=== PATIENT | male | born 1985 | race Caucasian/White ===

== ENCOUNTER 2018-04-19 11:30 | Day surgery (SDC) | payer OTHER ==
[~2018-04-19] VITALS: Ht 177.8 cm; Wt 93.4 kg
[2018-04-19] VITALS (7 sets, daily range): BP systolic 122–138; BP diastolic 62–72
[~2018-04-19 11:30] MED LIST: MONT10TA2 PO; NEUR300C PO; OXYC1TAB15 PO; PAME25CA PO; SKEL800T97 PO; ZYRT10CA PO
[2018-04-19] MEDS ORDERED: fentaNYL 250 MCG/5 ML INJECTION (J3010) As Ordered ONE (11:43)
[2018-04-19] MEDS ORDERED: PROPOFOL 200 MG/20 ML VIAL As Ordered ONE ×2 (11:44→13:57)
[2018-04-19] MEDS ORDERED: ONDANSETRON 4MG/2ML VIAL (J2405) As Ordered ONE (11:44)
[2018-04-19] MEDS ORDERED: LIDOCAINE 2% INJ 100 MG/5 ML SDV (FOR ANES.) As Ordered ONE (11:44)
[2018-04-19] MEDS ORDERED: MIDAZOLAM INJ 2 MG/2 ML VIAL (J2250) As Ordered ONE (11:44)
[2018-04-19] MEDS ORDERED: ROCURONIUM BROMIDE 50 MG/5 ML VIAL As Ordered ONE ×2 (11:44→14:33)
[2018-04-19] MEDS ORDERED: dexameTHASONE 4 MG/ML 1ML VIAL (J1100) As Ordered ONE (11:44)
[2018-04-19] MEDS ORDERED: LR 1,000 ML IV ONE (11:45)
[2018-04-19] MEDS ORDERED: methylPREDNISolone SUSP 40 MG/ML (DEPO-medrol) VIAL (J1030) As Ordered ONE (13:26)
[2018-04-19] MEDS ORDERED: THROMBIN SOLN 20,000 UNITS KIT As Ordered ONE (13:26)
[2018-04-19] MEDS ORDERED: BACITRACIN PWD 50,000 UNITS VIAL As Ordered ONE (13:27)
--- NOTE | 2018-04-19 13:40 | NUR ---
Neurosurgery Please see office notes for details. patient seen in the pre op area with his . patient with severe low back pain, with radicular neurogenic claudication mostly along L5 on the left with foot drop. He continues to be in severe agony, turning and tossing, is tearful. Patient's work up showed degenerative changes involving the disc spaces and the posterior elements causing a degree of subarticular and lateral recess stenosis and compression of the thecal sac and L5 root on the left patient seen in the PAR with his . Patent aware of all options, scope, expected outcome, sequel, and complications of the proposed salvage surgery. Patient was cleared for surgery by his primary care provider Dr. Eason from [facility] on phone Patient aware that the risks of surgery include but not limited to , coma, CSF leak, meningitis, persistence and or worsening of symptoms and or deficits, failure of surgery, fusion, and instrumentation if used, need for multiple surgeries, instability of the spine, requiring further surgeries, dependency of life support measures, loss of any and or all vital bodily functions, PE, DVT, RI, bleeding, infection, and or any catastrophic sequel. Patient and even his claims there is no way he can live with his symptoms, and he clearly understands that no guarantees can be given of any kind, and that he is willing to take any and or risks for any possible relief. Patient has follow up instructions. PLAN: Decompression left L4/5, with possible interfacet and or interspinous fusion, and segmental fixation using [place].
--- NOTE | 2018-04-19 15:30 | REP ---
CROSS TABLE LATERAL LUMBAR SPINE: Two cross table lateral lumbar spine films are obtained intraoperatively. Second image shows a metallic probe posteriorly. The tip of the probe is at the L4-5 level. Vertebral bodies are normal in height and well aligned with normal lumbar lordosis. Electronically Signed by John Milligan MD 04/19/2018 07:50 P
[2018-04-19] MEDS ORDERED: HYDROmorphone HCL 2 MG/ML 1ML VIAL (J1170) As Ordered ONE (15:35)
[2018-04-19] MEDS ORDERED: GLYCOPYRROLATE INJ 0.2 MG/ML 2 ML VIAL As Ordered ONE (16:04)
[2018-04-19] MEDS ORDERED: NEOSTIGMINE 10 MG/10 ML VIAL (J2710) As Ordered ONE (16:04)
[2018-04-19] MEDS ORDERED: ONDANSETRON 4MG/2ML VIAL (J2405) IV PRN ×2 (17:00→17:30)
[2018-04-19] MEDS ORDERED: LR 1,000 ML IV SCH (17:00)
[2018-04-19] MEDS ORDERED: KCL 20MEQ IN D5/0.45NS 1000ML 1,000 ML IV SCH (17:00)
[2018-04-19] MEDS ORDERED: HYDROMORPHONE HCL 0.5 MG/ 0.5 ML SYRINGE (J1170 PER 1) IV PRN (17:00)
[2018-04-19] MEDS ORDERED: MORPHINE 4 MG/ML 1ML VIAL/SYRINGE (J2270) IV PRN (17:00)
[2018-04-19] MEDS ORDERED: NORCO, ANEXSIA 5/325MG TABLET (HYDROcodone/ACETAMINOPHEN) PO PRN (17:00)
[2018-04-19] MEDS: PERCOCET 5MG/325MG TAB PO PRN ×2 (17:10→17:36)
[2018-04-19] MEDS: fentaNYL 100 MCG/2 ML INJECTION (J3010) IV PRN ×4 (17:15→17:32)
[2018-04-19] MEDS ORDERED: NALBUPHINE HCL 10 MG/ML AMP (J2300) IV PRN (17:30)
[2018-04-19] MEDS ORDERED: ACETAMINOPHEN TAB 650MG DOSE (2X325MG) PO PRN (17:30)
[2018-04-19] MEDS ORDERED: ceFAZolin SOD 1 GM in D5W MINI-BAG PLUS 50 ML IV SCH (17:30)
[2018-04-19] MEDS: ceFAZolin SOD 1 GM in D5W MINI-BAG PLUS 50 ML IV SCH (20:32)
[2018-04-19] MEDS: NORCO, ANEXSIA 5/325MG TABLET (HYDROcodone/ACETAMINOPHEN) PO PRN (21:33)
--- NOTE | 2018-04-19 22:19 | NUR ---
PROCEDURE NOTE: PRE OPERATIVE DIAGNOSIS: LUMBAR SPONDYLOSIS WITH RADICULOPATHY, AND NEUROGENIC CLAUDICATION, EPIDURAL LIPOMATOSIS, LEFT FOOT DROP POST OPERATIVE DIAGNOSIS:LUMBAR SPONDYLOSIS WITH RADICULOPATHY, AND NEUROGENIC CLAUDICATION, EPIDURAL LIPOMATOSIS, LEFT FOOT DROP, L4/5 FACET INSTABILITY PROCEDURE: DECOMPRESSION WITH ABDULAZIZ SEMI LAMINECTOMIES LEFT L4, L5, PARTIAL FACETECTOMIES, FORAMINOTOMIES, AND EXCISION OF HNP ON THE LEFT AT L4/5, CASTINGS TRIMMER IOR FUSION USING 05 MM BACTEREN ALLOGRAFT PLUG, PARTIAL FACET RHIZOTOMIES L3/4, L4/5, ON THE LEFT. ANESTHESIA: GENERAL SURGEON: TAMMY BARAKAT MD AUGER SUPERVISOR: NONE FINDINGS: SEVERE LATERAL, SUBARTICULAR, INFERIOR AND MEDIAL FORAMINAL STENOSIS, WITH BULGING DISC , APOPHYSEAL , EPIDURAL LIPOMATOSIS. EBL: < 80 ML.
[2018-04-20 01:30] VITALS: BP 123/59
[2018-04-20] MEDS: ceFAZolin SOD 1 GM in D5W MINI-BAG PLUS 50 ML IV SCH ×2 (01:43→07:56)
[2018-04-20] MEDS: NORCO, ANEXSIA 5/325MG TABLET (HYDROcodone/ACETAMINOPHEN) PO PRN ×2 (01:43→05:56)
[2018-04-20 05:30] VITALS: BP 122/68
--- NOTE | 2018-04-20 08:50 | NUR ---
Neurosurgery Alert, oriented times three, cheerful, quite excited that has no symptoms. Patient is ambulating, and voiding. Anxious to go home. Incision is healing SLR is negative, no radicular deficits, foot drop is resolved. Patient is afebrile. PLAN: Patient has instructions and scripts.
--- NOTE | 2018-04-20 09:02 | NUR ---
DISCHARGE SUMMARY DATE OF ADMISSION: APRIL 19, 2018 DATE OF DISCHARGE: APRIL 20, 2018 FINAL DIAGNOSIS:LUMBAR SPONDYLOSIS WITH RADICULOPATHY, AND NEUROGENIC CLAUDICATION, EPIDURAL LIPOMATOSIS, LEFT FOOT DROP, L4/5 FACET INSTABILITY PROCEDURE: DECOMPRESSION WITH ABDULAZIZ SEMI LAMINECTOMIES LEFT L4, L5, PARTIAL FACETECTOMIES, FORAMINOTOMIES, AND EXCISION OF HNP ON THE LEFT AT L4/5, ORE BRIDGE OPERATOR IOR FUSION USING 05 MM BACTEREN ALLOGRAFT PLUG, PARTIAL FACET RHIZOTOMIES L3/4, L4/5, ON THE LEFT. ANESTHESIA: GENERAL SURGEON: TAMMY BARAKAT MD PRODUCTION CONTROL PEGBOARD CLERK: NONE FINDINGS: SEVERE LATERAL, SUBARTICULAR, INFERIOR AND MEDIAL FORAMINAL STENOSIS, WITH BULGING DISC , APOPHYSEAL , EPIDURAL LIPOMATOSIS. EBL: < 80 ML. HOSPITAL COURSE patient with severe low back pain, with radicular neurogenic claudication mostly along L5 on the left with foot drop. He was in severe agony, turning and tossing, and tearful. Had failed multiple injections, PT, yoga, and all conservative measures. Patient's work up showed degenerative changes involving the disc spaces and the posterior elements causing a degree of subarticular and lateral recess stenosis and compression of the thecal sac and L5 root on the left. Has pseudosynovial cyst facet L4/5 on the right where he has no symptoms. Patent was aware of all options, scope, expected outcome, sequel, and complications of the proposed salvage surgery. Patient was cleared for surgery by his primary care provider Dr. De Jesus from [facility] on phone Patient was aware that the risks of surgery include but not limited to , coma, CSF leak, meningitis, persistence and or worsening of symptoms and or deficits, failure of surgery, fusion, and instrumentation if used, need for mult iple surgeries, instability of the spine, requiring further surgeries, dependency of life support measures, loss of any and or all vital bodily functions, PE, DVT, GA, bleeding, infection, and or any catastrophic sequel. Patient and even his claimed there is no way he can live with his symptoms, and wished to proceed with surgery. He underwent the above surgery uneventfully. Neurosurgery On the day of discharge, he is alert, oriented times three, cheerful, quite excited that has no symptoms. Patient is ambulating, and voiding. Anxious to go home. Incision is healing SLR is negative, no radicular deficits, foot drop is resolved. Patient is afebrile. PLAN: Patient has instructions and scripts. HE WILL BE OFF WORK FOR SIX WEEKS FROM TODAY. He remains a suitable candidate for continued employment.
--- NOTE | 2018-04-25 09:40 | RO ---
DATE OF PROCEDURE: 04/19/2018 PREPROCEDURE DIAGNOSES: Lumbar spondylosis, myelopathy and left foot drop. POSTPROCEDURE DIAGNOSES: Lumbar spondylosis, myelopathy and left foot drop. PROCEDURE: Decompression of L4-5 with partial facetectomies, foraminotomies, and excision of disc, partial facet rhizotomies at L3-4, L4-5, L5-S1 on the left and posterior fusion of L4-5 using facet allograft plug. GENERAL SURGEON: Jean Marie Chavez MD CAPTAIN OF GUARDS: None. ANESTHESIA: General. FINDINGS: Please see my office notes for details and preoperative evaluation and discussions. The patient had progressive and severe pain in his low back and left leg, worse since December of this year and believes it was related to the chores at work while serving in the . For the past month or so the pain has been "intolerable." He has been turning and tossing and screaming in pain, unable to sit still. He can walk without any persistence, but for the past several weeks he is unable to do independent ambulation. He denies any bladder or bowel symptoms or saddle anesthesia. Workup showed diffuse lumbar spondylosis, diffuse degenerative changes involving the disc space, as well as the posterior elements at L4-5 and also has a focal disc herniation, which contributed to worsening of his subarticular and lateral recess and lumbar stenosis. Also had a synovial cyst formation on the right, he had no symptoms on the right. Similar degenerative changes at L5-S1, worse on the right. Once again, he had no symptoms. Also, it showed a degree of epidural lipomatosis with mild compression of the thecal sac at L5. The patient was seen in the preoperative area and once again he was extremely uncomfortable, unable to sit or lie still and had significant foot drop. The site was marked. The patient and his were aware of all options, risks, scope, expected outcome, sequelae, and the complications of the proposed surgery. They understood that no guarantees of any kind could be given and that the surgery is not curative. They understood the risks of surgery, including but not limited to , paralysis, coma, meningitis, spinal fluid leakage, persistent or worsening of symptoms and/or deficits, failure of surgery, need for multiple surgeries, failure of fusion and/or instrumentation. Risks also include loss of any or all bodily functions, infection, bleeding and/or any catastrophic sequelae. The patient and his once again reiterated that there is no way that he can live with his pain and is willing to take any or all risks for any possible benefit. After all matters pertaining to surgery, anesthesia, and followup care have been discussed with them, again they wished to proceed with surgery and the site was marked, the patient was taken to the operating room. DESCRIPTION OF PROCEDURE: Once in the operating room, general endotracheal anesthesia was given by the anesthesia service. The area of surgery was prepped and draped in the usual sterile fashion after positioning him prone on the translucent Gregory frame on the [place] table. After adequate prep and drape, a skin incision was given across the L4-L5 interspace. Lumbodorsal fascia region incised to the left of the midline. Paraspinal muscles were from midline structures. The exposed facets were hypertrophic with redundant capsules. The posterolateral aspects of these capsules were coagulated with the bipolar cautery from L3-4, L4-5, L5-S1, achieving partial facet rhizotomies. Generous peggy-semi laminectomies were performed at L4 and also extending into L5. Hypertrophic ligamentum flavum was removed. There was considerable lateral recess and subarticular stenosis from the degenerative changes and also bulging disc, which had a small soft component. After facetectomies were done, decompression was carried out superiorly and laterally in between the two pedicles to make more room for the exiting nerve root, and decompression was carried inferiorly until the region of the S1 nerve root. Once the lateral recess was reached, minimal retraction was required and #11 blade was used to incise the thinned out annulus. He has soft subligamentously herniated disc material and this was removed using various sizes of rongeurs and disc space was entered and further disc material was removed. Complete decompression of the thecal sac was carried out. There was a degree of facet instability. The facet joint was exposed and curetted . A stylet was introduced into the facet joint, followed by placement of drill guide. The facet joint was drilled with a 5 mm drill bit this was followed by tapping a 5 mm with allograft plug, across the facet joint which resolved the instability of the joint. Hemostasis was checked and secured throughout the procedure. Blood loss was minimal. At this time, the wound was closed in anatomic layers. A perineal dressing was applied. Operative findings were discussed with the patient's in the waiting room. KAJAL
== END 2018-04-20 11:08 | disposition home or self-care (01) ==
LOC: M SDC 11:30 → EEVIPCON 11:30 → M PED 17:55 → M SDC 04-20 11:08
PROVIDERS: ATTEND Neurological Surgery
DX: M21.372 Foot drop, left foot (principal); M47.16 Other spondylosis with myelopathy, lumbar region; Z79.899 Other long term (current) drug therapy; Z87.891 Personal history of nicotine dependence
CPT/HCPCS: 20931; 22630; 63030; 63190; 72110; 88304; 96365; 96366; C1762; J0690; J1030; J1100; J1170; J2250; J2405; J2710; J3010

== ENCOUNTER → 2018-06-17 | Outpatient (CLI) | payer OTHER ==
--- NOTE | 2018-06-17 17:59 | REP ---
Clinical: Pain with recent trauma/fall. Technique: AP, lateral, bilateral oblique views left wrist . Findings: The carpal bones, surrounding osseous structures, soft tissues, and joint spaces are normal. There is no evidence for acute fracture or dislocation. No subcutaneous emphysema or radiodense foreign body. Impression: Normal wrist series. No acute fracture or dislocation Electronically Signed by Corey King MD 06/17/2018 05:50 P
== END ==
LOC: M LRY 17:24
PROVIDERS: ATTEND Physician Assistant
DX: S69.92XA Unspecified injury of left wrist, hand and finger(s), initial encounter (principal); Y92.89 Other specified places as the place of occurrence of the external cause; Y93.89 Activity, other specified; X58.XXXA Exposure to other specified factors, initial encounter; Y99.8 Other external cause status
CPT/HCPCS: 73110; G0463